=== PATIENT | female | born 1950 | race Caucasian/White ===

== ENCOUNTER → 2017-09-23 06:32 | Outpatient (CLI) | payer OTHER ==
[~2017-09-23 06:32] MED LIST: ENALAPRIL MALEA10 MG; LEVOXYL25 MCG; LIPITOR20 MG; PARA LA PRESION; VASOTEC10 MG; ZITHROMAX500 MG PO
== END | disposition home or self-care (01) ==
LOC: LAB 06:32
DX: E11.65 Type 2 diabetes mellitus with hyperglycemia (principal); D68.8 Other specified coagulation defects; N39.0 Urinary tract infection, site not specified; E78.2 Mixed hyperlipidemia; E03.8 Other specified hypothyroidism; D64.89 Other specified anemias; D68.1 Hereditary factor XI deficiency

== ENCOUNTER 2017-09-23 07:36 | Outpatient (CLI) | payer OTHER | END 2017-09-23 12:09 | disposition home or self-care (01) | LOC: MRI 07:36 | DX: S83.207A Unspecified tear of unspecified meniscus, current injury, left knee, initial encounter (principal) | CPT/HCPCS: 73721 ==

== ENCOUNTER 2017-09-23 07:53 | Outpatient (CLI) | payer OTHER | END 2017-09-23 12:09 | disposition home or self-care (01) | LOC: RAD 07:53 | DX: J45.998 Other asthma (principal) ==

== ENCOUNTER 2018-01-20 06:56 | Outpatient (CLI) | payer OTHER ==
[~2018-01-20 06:56] MED LIST changes: +CEFADROXIL500 MG PO; +PERCOCET 5-3251 EACH PO; +XARELTO10 MG PO
== END 2018-01-20 07:08 | disposition home or self-care (01) ==
LOC: LAB 06:56
DX: E11.65 Type 2 diabetes mellitus with hyperglycemia (principal); D68.8 Other specified coagulation defects; E03.8 Other specified hypothyroidism; E78.2 Mixed hyperlipidemia; Z11.59 Encounter for screening for other viral diseases

== ENCOUNTER 2018-02-21 07:30 | Outpatient (CLI) | payer OTHER | END 2018-02-21 07:36 | disposition home or self-care (01) | LOC: MRI 07:30 | DX: M54.5 Low back pain (principal) | CPT/HCPCS: 72148; A9579 ==

== ENCOUNTER 2018-04-16 07:39 | Outpatient (CLI) | payer OTHER | END 2018-04-16 07:43 | disposition home or self-care (01) | LOC: RAD 07:39 | DX: J43.2 Centrilobular emphysema (principal); Z72.0 Tobacco use; R05 Cough; R06.02 Shortness of breath ==

== ENCOUNTER 2018-06-16 06:41 | Outpatient (CLI) | payer OTHER | END 2018-06-16 06:50 | disposition home or self-care (01) | LOC: LAB 06:41 | DX: E78.2 Mixed hyperlipidemia (principal); E55.9 Vitamin D deficiency, unspecified; N39.0 Urinary tract infection, site not specified; E03.8 Other specified hypothyroidism; K76.89 Other specified diseases of liver; E11.65 Type 2 diabetes mellitus with hyperglycemia ==

== ENCOUNTER 2018-10-08 07:26 | Outpatient (CLI) | payer OTHER | END 2018-10-08 07:31 | disposition home or self-care (01) | LOC: LAB 07:26 | DX: E03.8 Other specified hypothyroidism (principal); E78.2 Mixed hyperlipidemia; E11.65 Type 2 diabetes mellitus with hyperglycemia; D64.89 Other specified anemias; D68.8 Other specified coagulation defects ==

== ENCOUNTER 2018-10-08 08:04 | Outpatient (CLI) | payer OTHER | END 2018-10-08 17:00 | disposition home or self-care (01) | LOC: TOM 08:04 | DX: J43.2 Centrilobular emphysema (principal); Z72.0 Tobacco use; E66.01 Morbid (severe) obesity due to excess calories; R06.02 Shortness of breath ==

== ENCOUNTER 2018-11-07 06:43 | Outpatient (CLI) | payer OTHER | END 2018-11-07 06:46 | disposition home or self-care (01) | LOC: LAB 06:43 | DX: D64.89 Other specified anemias (principal); R10.9 Unspecified abdominal pain; E78.49 Other hyperlipidemia ==

== ENCOUNTER 2018-12-17 11:03 | Outpatient (CLI) | payer OTHER | END 2018-12-17 11:07 | disposition home or self-care (01) | LOC: LAB 11:03 | DX: E78.2 Mixed hyperlipidemia (principal); E11.65 Type 2 diabetes mellitus with hyperglycemia; E03.8 Other specified hypothyroidism ==

== ENCOUNTER 2019-01-06 07:37 | Outpatient (CLI) | payer OTHER | END 2019-01-06 07:49 | disposition home or self-care (01) | LOC: TOM 07:37 | DX: K56.600 Partial intestinal obstruction, unspecified as to cause (principal); D12.8 Benign neoplasm of rectum ==

== ENCOUNTER 2019-01-09 07:26 | Outpatient (CLI) | payer OTHER | END 2019-01-09 07:30 | disposition home or self-care (01) | LOC: LAB 07:26 | DX: E03.8 Other specified hypothyroidism (principal); E78.2 Mixed hyperlipidemia; E11.65 Type 2 diabetes mellitus with hyperglycemia ==

== ENCOUNTER 2019-01-15 20:21 | Emergency (ER) | payer OTHER ==
[~2019-01-15] VITALS: Ht 170.2 cm; Wt 93.0 kg
== END 2019-01-15 23:40 | disposition home or self-care (01) ==
LOC: ER 20:21
DX: S05.11XA Contusion of eyeball and orbital tissues, right eye, initial encounter (principal); S80.01XA Contusion of right knee, initial encounter; W18.39XA Other fall on same level, initial encounter; Y93.89 Activity, other specified; Y92.098 Other place in other non-institutional residence as the place of occurrence of the external cause; Y99.8 Other external cause status

== ENCOUNTER 2019-03-09 10:11 | Outpatient (CLI) | payer OTHER | END 2019-03-09 10:26 | disposition home or self-care (01) | LOC: SONOGRAMA 10:11 | DX: E04.1 Nontoxic single thyroid nodule (principal); E03.8 Other specified hypothyroidism ==

== ENCOUNTER 2019-07-07 13:09 | Outpatient (CLI) | payer OTHER | END 2019-07-07 13:14 | disposition home or self-care (01) | LOC: LAB 13:09 | DX: D64.89 Other specified anemias (principal); R10.84 Generalized abdominal pain; E78.49 Other hyperlipidemia; E03.8 Other specified hypothyroidism ==

== ENCOUNTER → 2019-07-14 | Outpatient (CLI) | payer OTHER | END | disposition home or self-care (01) | LOC: TOM 10:00 | DX: G45.8 Other transient cerebral ischemic attacks and related syndromes (principal) ==

== ENCOUNTER 2019-09-08 07:14 | Outpatient (CLI) | payer OTHER | END 2019-09-08 07:19 | disposition home or self-care (01) | LOC: LAB 07:14 | DX: D68.8 Other specified coagulation defects (principal); E11.65 Type 2 diabetes mellitus with hyperglycemia; E03.8 Other specified hypothyroidism; D64.89 Other specified anemias; Z12.11 Encounter for screening for malignant neoplasm of colon; E78.2 Mixed hyperlipidemia ==

== ENCOUNTER 2019-09-08 08:29 | Outpatient (CLI) | payer OTHER | END 2019-09-08 08:56 | disposition home or self-care (01) | LOC: MAMO-SONO 08:29 | DX: Z12.31 Encounter for screening mammogram for malignant neoplasm of breast (principal); Z87.898 Personal history of other specified conditions ==

== ENCOUNTER → 2019-09-17 09:00 | Outpatient (CLI) | payer OTHER | END | disposition home or self-care (01) | LOC: LAB 09:00 | DX: D68.8 Other specified coagulation defects (principal); E11.65 Type 2 diabetes mellitus with hyperglycemia; E03.8 Other specified hypothyroidism; D64.89 Other specified anemias; Z12.11 Encounter for screening for malignant neoplasm of colon; E78.2 Mixed hyperlipidemia ==

== ENCOUNTER → 2020-01-21 09:27 | Outpatient (CLI) | payer OTHER | END | disposition home or self-care (01) | LOC: LAB 09:27 | PROVIDERS: ATTEND Internal Medicine | DX: D64.89 Other specified anemias (principal); R10.84 Generalized abdominal pain; E03.8 Other specified hypothyroidism; E11.9 Type 2 diabetes mellitus without complications ==

== ENCOUNTER 2020-03-29 14:37 | Emergency (ER) | payer OTHER ==
[~2020-03-29] VITALS: Ht 170.2 cm; Wt 93.4 kg
== END 2020-03-29 19:56 | disposition home or self-care (01) ==
LOC: ER 14:37
DX: B34.9 Viral infection, unspecified (principal); Z03.818 Encounter for observation for suspected exposure to other biological agents ruled out; R05 Cough; R53.81 Other malaise

== ENCOUNTER → 2020-11-22 09:20 | Outpatient (CLI) | payer OTHER | END | disposition home or self-care (01) | LOC: LAB 09:20 | PROVIDERS: ATTEND Specialist | DX: N30.00 Acute cystitis without hematuria (principal); R07.89 Other chest pain ==

== ENCOUNTER → 2020-12-22 11:49 | Outpatient (CLI) | payer OTHER | END | disposition home or self-care (01) | LOC: LAB 11:49 | PROVIDERS: ATTEND Specialist | DX: E11.65 Type 2 diabetes mellitus with hyperglycemia (principal); E78.2 Mixed hyperlipidemia; Z12.11 Encounter for screening for malignant neoplasm of colon; D64.89 Other specified anemias; E11.21 Type 2 diabetes mellitus with diabetic nephropathy; E03.8 Other specified hypothyroidism ==

== ENCOUNTER → 2021-03-07 13:39 | Outpatient (CLI) | payer OTHER | END | disposition home or self-care (01) | LOC: LAB 13:39 | PROVIDERS: ATTEND Internal Medicine | DX: R10.84 Generalized abdominal pain (principal); D64.89 Other specified anemias; E03.8 Other specified hypothyroidism; E78.49 Other hyperlipidemia; R80.8 Other proteinuria; E11.9 Type 2 diabetes mellitus without complications ==

== ENCOUNTER 2021-03-15 09:29 | Outpatient (CLI) | payer OTHER | END 2021-03-15 09:37 | disposition home or self-care (01) | LOC: SONOGRAMA 09:29 | PROVIDERS: ATTEND Specialist | DX: M25.511 Pain in right shoulder (principal) ==

== ENCOUNTER 2021-04-14 09:52 | Outpatient (CLI) | payer OTHER | END 2021-04-14 09:57 | disposition home or self-care (01) | LOC: LAB 09:52 | PROVIDERS: ATTEND Specialist | DX: N39.0 Urinary tract infection, site not specified (principal); E11.65 Type 2 diabetes mellitus with hyperglycemia; D64.89 Other specified anemias; D51.0 Vitamin B12 deficiency anemia due to intrinsic factor deficiency ==

== ENCOUNTER → 2021-06-19 06:28 | Outpatient (CLI) | payer OTHER | END | disposition home or self-care (01) | LOC: LAB 06:28 | PROVIDERS: ATTEND Orthopaedic Surgery | DX: E78.2 Mixed hyperlipidemia (principal); D68.8 Other specified coagulation defects; N39.0 Urinary tract infection, site not specified; Z03.818 Encounter for observation for suspected exposure to other biological agents ruled out; R07.89 Other chest pain; I10 Essential (primary) hypertension ==

== ENCOUNTER 2021-09-04 09:34 | Outpatient (CLI) | payer OTHER | END 2021-09-04 09:44 | disposition home or self-care (01) | LOC: LAB 09:34 | PROVIDERS: ATTEND Specialist | DX: E11.21 Type 2 diabetes mellitus with diabetic nephropathy (principal); N39.0 Urinary tract infection, site not specified; E78.2 Mixed hyperlipidemia; Z12.11 Encounter for screening for malignant neoplasm of colon ==

== ENCOUNTER 2021-09-06 08:01 | Outpatient (CLI) | payer OTHER | END 2021-09-06 08:09 | disposition home or self-care (01) | LOC: LAB 08:01 | PROVIDERS: ATTEND Specialist | DX: R07.89 Other chest pain (principal); E11.65 Type 2 diabetes mellitus with hyperglycemia; E11.21 Type 2 diabetes mellitus with diabetic nephropathy; N39.0 Urinary tract infection, site not specified; E78.2 Mixed hyperlipidemia; Z12.11 Encounter for screening for malignant neoplasm of colon; D64.89 Other specified anemias; R10.84 Generalized abdominal pain; E78.49 Other hyperlipidemia ==

== ENCOUNTER 2021-10-26 08:01 | Outpatient (CLI) | payer OTHER | END 2021-10-26 08:09 | disposition home or self-care (01) | LOC: MRI 08:01 | PROVIDERS: ATTEND Anesthesiology | DX: M53.9 Dorsopathy, unspecified (principal) | CPT/HCPCS: 72141 ==

== ENCOUNTER 2021-11-06 21:17 | Emergency (ER) | payer OTHER ==
[~2021-11-06] VITALS: Ht 177.8 cm; Wt 90.7 kg
== END 2021-11-07 02:09 | disposition home or self-care (01) ==
LOC: ER 21:17
DX: B34.9 Viral infection, unspecified (principal); Z20.822 Contact with and (suspected) exposure to COVID-19

== ENCOUNTER 2021-11-14 10:33 | Outpatient (CLI) | payer OTHER | END 2021-11-14 10:53 | disposition home or self-care (01) | LOC: LAB 10:33 | PROVIDERS: ATTEND Specialist | DX: E03.9 Hypothyroidism, unspecified (principal); M25.561 Pain in right knee; M25.562 Pain in left knee; J45.998 Other asthma ==

== ENCOUNTER 2021-11-14 11:51 | Outpatient (CLI) | payer OTHER | END 2021-11-15 12:43 | disposition home or self-care (01) | LOC: MAMO-SONO 11:51 | PROVIDERS: ATTEND Specialist | DX: Z12.31 Encounter for screening mammogram for malignant neoplasm of breast (principal) ==

== ENCOUNTER 2022-01-03 23:46 | Inpatient (IN) | payer OTHER ==
[~2022-01-03] VITALS: Ht 170.2 cm; Wt 98.0 kg
[2022-01-04] MEDS ORDERED: LEVOTHYROXINE88 MCG PO (00:12)
[2022-01-04] MEDS ORDERED: MELOXICAM15 MG PO (00:12)
[2022-01-04] MEDS ORDERED: IRBESARTAN-HCT1 EAC1 PO (00:13)
[2022-01-04] MEDS ORDERED: ROSUVASTATIN CA40 MG PO (00:13)
[2022-01-04] MEDS ORDERED: TENORMIN25 MG PO (00:13)
[2022-01-04] MEDS ORDERED: FLONASE16 GM NS (00:13)
== END 2022-01-07 19:37 | disposition home or self-care (01) | DRG 390 ==
LOC: ER 23:46 → MEDI 01-04 16:33
PROVIDERS: ADMIT Specialist; ATTEND Specialist
PROC: BW21YZZ Computerized Tomography (CT Scan) of Abdomen and Pelvis using Other Contrast (ICD-10-PCS; principal; 2022-01-04)
PROC: 3E0F7SF Introduction of Other Gas into Respiratory Tract, Via Natural or Artificial Opening (ICD-10-PCS; 2022-01-04)
DX: K56.699 Other intestinal obstruction unspecified as to partial versus complete obstruction (principal); I11.9 Hypertensive heart disease without heart failure; E86.0 Dehydration; E03.8 Other specified hypothyroidism; J45.998 Other asthma; Z20.822 Contact with and (suspected) exposure to COVID-19

== ENCOUNTER 2022-01-17 08:37 | Outpatient (CLI) | payer OTHER ==
[~2022-01-17 08:37] MED LIST changes: +FLONASE16 GM NS; +IRBESARTAN-HCT1 EAC1 PO; +LEVOTHYROXINE88 MCG PO; +MELOXICAM15 MG PO; +ROSUVASTATIN CA40 MG PO; +TENORMIN25 MG PO
== END 2022-01-17 13:57 | disposition home or self-care (01) ==
LOC: LAB 08:37
PROVIDERS: ATTEND Specialist
DX: D64.9 Anemia, unspecified (principal); E78.2 Mixed hyperlipidemia; Z12.11 Encounter for screening for malignant neoplasm of colon; E11.65 Type 2 diabetes mellitus with hyperglycemia

== ENCOUNTER 2022-05-24 17:20 | Emergency (ER) | payer OTHER ==
[~2022-05-24] VITALS: Ht 170.2 cm; Wt 92.5 kg
[2022-05-24] MEDS ORDERED: CARVEDILOL12.5 M1 PO (18:19)
[2022-05-24] MEDS ORDERED: ZITHROMAX500 MG PO (21:22)
== END 2022-05-24 22:09 | disposition home or self-care (01) ==
LOC: ER 17:20
DX: J15.7 Pneumonia due to Mycoplasma pneumoniae (principal); J43.9 Emphysema, unspecified; Z87.891 Personal history of nicotine dependence; I11.9 Hypertensive heart disease without heart failure; T78.49XA Other allergy, initial encounter; Z20.822 Contact with and (suspected) exposure to COVID-19

== ENCOUNTER 2022-07-16 12:46 | Outpatient (CLI) | payer OTHER ==
[~2022-07-16 12:46] MED LIST changes: +CARVEDILOL12.5 M1 PO
== END 2022-07-16 12:57 | disposition home or self-care (01) ==
LOC: RAD 12:46
PROVIDERS: ATTEND Specialist
DX: I70.0 Atherosclerosis of aorta (principal); M72.2 Plantar fascial fibromatosis

== ENCOUNTER 2022-07-30 10:16 | Outpatient (CLI) | payer OTHER | END 2022-07-30 10:43 | disposition home or self-care (01) | LOC: LAB 10:16 | PROVIDERS: ATTEND Internal Medicine Gastroenterology | DX: K59.00 Constipation, unspecified (principal); Z86.010 Personal history of colon polyps ==

== ENCOUNTER 2022-08-14 07:06 | Outpatient (CLI) | payer OTHER | END 2022-08-14 07:16 | disposition home or self-care (01) | LOC: TOM 07:06 | PROVIDERS: ATTEND Internal Medicine Gastroenterology | DX: R10.30 Lower abdominal pain, unspecified (principal); K63.4 Enteroptosis | CPT/HCPCS: 74177; Q9965 ==

== ENCOUNTER 2022-12-17 08:49 | Outpatient (CLI) | payer OTHER | END 2022-12-17 08:56 | disposition home or self-care (01) | LOC: LAB 08:49 | PROVIDERS: ATTEND Specialist | DX: R19.5 Other fecal abnormalities (principal); E03.8 Other specified hypothyroidism; E05.80 Other thyrotoxicosis without thyrotoxic crisis or storm; E11.69 Type 2 diabetes mellitus with other specified complication; Z13.220 Encounter for screening for lipoid disorders; R07.89 Other chest pain; N39.9 Disorder of urinary system, unspecified; D64.89 Other specified anemias; E11.21 Type 2 diabetes mellitus with diabetic nephropathy ==

== ENCOUNTER 2023-03-11 09:50 | Outpatient (CLI) | payer OTHER | END 2023-03-11 09:54 | disposition home or self-care (01) | LOC: LAB 09:50 | PROVIDERS: ATTEND Specialist | DX: E11.69 Type 2 diabetes mellitus with other specified complication (principal); E03.8 Other specified hypothyroidism; E11.21 Type 2 diabetes mellitus with diabetic nephropathy; D64.89 Other specified anemias; R19.5 Other fecal abnormalities; M00.80 Arthritis due to other bacteria, unspecified joint ==

== ENCOUNTER 2023-05-20 10:34 | Outpatient (CLI) | payer OTHER ==
[2023-05-20 11:22] LABS: HEMATOCRIT 36.8 % (36.0-45.00); HEMOGLOBIN 11.8 g/dL (12.0-15.00); MEAN CELL VOLUME 93.4 fL (80.00-100.00); MEAN CORPUSCULAR HEMOGLOBIN 29.9 pg (27.00-32.0); PLATELET COUNT 180 K/uL (150-450); RED BLOOD COUNT 3.94 M/uL (4.00-6.00); RED CELL DISTRIBUTION WIDTH 13.7 % (11.5-14.5)
[2023-05-20 11:32] LABS: PH,URINE 6.5 (5.0-8.0); URINE APPEARANCE Clear; URINE BILIRRUBIN Negative (NEGATIVE); URINE BLOOD Negative; URINE COLOR Yellow; URINE GLUCOSE Negative (NEGATIVE); URINE LEUKOCYTE Small; URINE NITRATE Negative; URINE PROTEIN Negative (NEGATIVE); URINE UROBILINOGEN 0.2 E.U./dl
[2023-05-20 11:37] LABS: URINE BACTERIA 23.9 uL (0.0-1933); URINE EPITHELIAL CELLS 4.3 uL (0.0-38.8); URINE RBC 6.7 uL (0.0-20.8); URINE WBC 10.8 uL (0.0-23.2)
[2023-05-20 13:17] LABS: ALBUMIN 3.4 gm/dL (3.4-5.0); BILIRUBIN TOTAL 0.46 mg/dL (0.3-1.2); CALCIUM 8.6 mg/dL (8.5-10.1); CHOL HDL RATIO 2.2 (0-5.0); CREATININE SERUM 0.83 mg/dL (0.55-1.02); FREE TRIODOTIRONINE 1.76 pg/ml (2.18-3.98); GFR 67.57; GLOBULINA 3.6 G/DL (2.4-3.5); POTASSIUM 4.86 mEq/L (3.5-5.1); T4 FREE 0.91 NG/ML (0.76-1.46); TSH 2.18 uIU/mL (0.358-3.74)
== END 2023-05-20 13:01 | disposition home or self-care (01) ==
LOC: LAB 10:34
PROVIDERS: ATTEND Specialist
DX: E11.69 Type 2 diabetes mellitus with other specified complication (principal); E03.8 Other specified hypothyroidism; Z13.220 Encounter for screening for lipoid disorders; D64.89 Other specified anemias; N39.9 Disorder of urinary system, unspecified; E11.21 Type 2 diabetes mellitus with diabetic nephropathy

== ENCOUNTER 2023-08-26 13:17 | Outpatient (CLI) | payer OTHER ==
[2023-08-26 15:06] LABS: HEMATOCRIT 37.8 % (36.0-45.00); HEMOGLOBIN 12.7 g/dL (12.0-15.00); MEAN CELL VOLUME 92.8 fL (80.00-100.00); MEAN CORPUSCULAR HEMOGLOBIN 31.1 pg (27.00-32.0); MEAN CORPUSCULAR HGB CONC 33.6 g/dl (32.0-36.0); PLATELET COUNT 184 K/uL (150-450); RED BLOOD COUNT 4.07 M/uL (4.00-6.00); RED CELL DISTRIBUTION WIDTH 13.6 % (11.5-14.5)
[2023-08-26 15:17] LABS: CALCIUM 9.5 mg/dL (8.5-10.1); CREATININE SERUM 0.73 mg/dL (0.55-1.02); GFR 78.15; POTASSIUM 4.29 mEq/L (3.5-5.1)
[2023-08-26 15:20] LABS: INR 0.99; PARTIAL THROMBOPLASTIN TIME 30.8 SECONDS (22.0-34.0); PROTHROMBIN TIME 10.4 SECONDS (9.0-11.5)
== END 2023-08-26 13:21 | disposition home or self-care (01) ==
LOC: LAB 13:17
DX: D68.9 Coagulation defect, unspecified (principal); E78.5 Hyperlipidemia, unspecified

== ENCOUNTER 2024-03-16 10:28 | Outpatient (CLI) | payer OTHER ==
[2024-03-16 11:26] LABS: HEMATOCRIT 38.5 % (36.0-45.00); MEAN CELL VOLUME 92.6 fL (80.00-100.00); MEAN CORPUSCULAR HEMOGLOBIN 31.3 pg (27.00-32.0); MEAN CORPUSCULAR HGB CONC 33.8 g/dl (32.0-36.0); PLATELET COUNT 207 K/uL (150-450); RED BLOOD COUNT 4.15 M/uL (4.00-6.00); RED CELL DISTRIBUTION WIDTH 13.1 % (11.5-14.5)
[2024-03-16 11:31] LABS: URINE APPEARANCE Clear; URINE BACTERIA 162.4 uL (0.0-1933); URINE BILIRRUBIN Negative (NEGATIVE); URINE BLOOD Negative; URINE COLOR Yellow; URINE EPITHELIAL CELLS 23.1 uL (0.0-38.8); URINE GLUCOSE Negative (NEGATIVE); URINE KETONE Negative (NEGATIVE); URINE LEUKOCYTE Small; URINE NITRATE Negative; URINE PROTEIN Negative (NEGATIVE); URINE RBC 6.1 uL (0.0-20.8); URINE WBC 13.6 uL (0.0-23.2)
[2024-03-16 11:53] LABS: CREATININE URINE RANDOM 89.3 MG/DL (30-125)
[2024-03-16 12:45] LABS: ALBUMIN 3.8 gm/dL (3.4-5.0); BILIRUBIN TOTAL 0.84 mg/dL (0.3-1.2); CALCIUM 9.4 mg/dL (8.5-10.1); CHOL HDL RATIO 3.5 (0-5.0); CREATININE SERUM 0.82 mg/dL (0.55-1.02); FREE TRIODOTIRONINE 2.91 pg/ml (2.18-3.98); GFR 68.33; GLOBULINA 3.6 G/DL (2.4-3.5); POTASSIUM 4.23 mEq/L (3.5-5.1); T4 FREE 1.23 NG/ML (0.76-1.46); TOTAL PROTEIN 7.4 gm/dL (6.4-8.2); TSH 1.61 uIU/mL (0.358-3.74)
[2024-03-16 12:52] LABS: C-REACTIVE PROTEIN 1.06 MG/DL (0.00-0.29)
== END 2024-03-16 10:29 | disposition home or self-care (01) ==
LOC: LAB 10:28
PROVIDERS: ATTEND Specialist
DX: E11.21 Type 2 diabetes mellitus with diabetic nephropathy (principal); D64.89 Other specified anemias; N39.9 Disorder of urinary system, unspecified; E11.69 Type 2 diabetes mellitus with other specified complication; M00.80 Arthritis due to other bacteria, unspecified joint; K92.2 Gastrointestinal hemorrhage, unspecified; E03.8 Other specified hypothyroidism; Z13.220 Encounter for screening for lipoid disorders